=== PATIENT | male | born 1980 | race Two or more races ===

== ENCOUNTER 2020-04-24 21:49 | Emergency (ER) | payer OTHER ==
[~2020-04-24] VITALS: Ht 172.7 cm; Wt 127.0 kg
[2020-04-24] MEDS ORDERED: ACETAMINOPHEN 325 MG TAB PO ONE (22:15)
[2020-04-24 23:15] LABS: Basophils # (auto) 0 10 ^3/uL (0-0.2); Eosinophils # (auto) 0 10 ^3/uL (0-0.8); Eosinophils % (auto) 0.1 % (0.0-7.0); Hematocrit 39.7 % (41.0-53.0); Hemoglobin 13.1 g/dL (13.5-17.5); Lymphocytes # (auto) 0.5 10 ^3/uL (0.4-5.4); Mean Corpuscular Hemoglobin 27.3 pg (28.0-32.0); Mean Corpuscular Hgb Conc. 32.9 g/dL (32.0-36.0); Mean Corpuscular Volume 82.8 fL (80.0-100.0); Monocytes # (auto) 0.2 10 ^3/uL (0-1.3); Monocytes % (auto) 3.1 % (0.0-12.0); Neutrophils # (auto) 6.1 10 ^3/uL (1.6-8.6); Neutrophils % (auto) 88.8 % (37.0-80.0); Platelet Count (auto) 325 10^3/uL (140-450); Red Blood Cells 4.79 10^6/uL (4.5-5.90); Red Cell Distribution Width 14.5 % (11.8-14.3); White Blood Cell 6.8 10^3/uL (4.4-10.8)
[2020-04-24 23:32] LABS: Calcium 7.8 mg/dL (8.5-10.1); Potassium 3.6 mmol/L (3.5-5.1)
[2020-04-24 23:34] LABS: BUN/Creatinine Ratio 8.9
[2020-04-24 23:37] LABS: Bilirubin, Total 0.3 mg/dL (0.2-1.0); Total Protein 6.9 g/dL (6.4-8.2)
[2020-04-25] MEDS ORDERED: levoFLOXacin 750MG 150 ML IV ONE (03:15)
[2020-04-25] MEDS ORDERED: levoFLOXacin 250 MG TAB PO ONE (05:30)
[2020-04-25 05:53] VITALS: BP 145/82
== END 2020-04-25 04:59 | disposition home or self-care (01) ==
LOC: ER 21:49
DX: J18.9 Pneumonia, unspecified organism (principal); Z20.828 Contact with and (suspected) exposure to other viral communicable diseases
CPT/HCPCS: 36415; 71045; 80053; 85025; 87040